=== PATIENT | female | born 1935 | race Caucasian/White ===

== ENCOUNTER → 2016-05-19 | Outpatient (CLI) | payer MEDICARE, OTHER ==
[~2016-05-19] MED LIST: ACTOS15 MG ORAL; ADVAIR 250/501 PUFFS INH; ASPIRIN-LOW81 MG ORAL; BENICAR20 MG ORAL; CLARITIN10 M1 ORAL; FLOVENT2 PUFF1 INH; GLUCOTROL5 MG ORAL; KLONOPIN0.5 MG ORAL; LINZESS145 MCG PO; MAXZIDE ORAL; MELATONIN3 MG ORAL; METFORMIN HCL500 M1 ORAL; NEXIUM40 MG ORAL; NORVASC5 MG ORAL; PREVACID30 MG ORAL; SIMVASTATIN20 MG ORAL; SINGULAIR10 MG ORAL; SYMBICORT2 PUFF1 INH; ZOLOFT50 MG ORAL
--- NOTE | 2016-05-19 14:58 | GI Progress Note ---
Assessment/Plan Problems: (1) GERD (gastroesophageal reflux disease) ICD Codes: K21.9 - Gastro-esophageal reflux disease without esophagitis SNOMED: 370769705 (2) Abdominal bloating ICD Codes: R14.0 - Abdominal distension (gaseous) SNOMED: 276193339 (3) Nausea ICD Codes: R11.0 - Nausea SNOMED: 756139722 (4) Abdominal pain ICD Codes: R10.9 - Unspecified abdominal pain SNOMED: 41690654, 575368242 (5) IBS (irritable bowel syndrome) ICD Codes: K58.9 - Irritable bowel syndrome without diarrhea SNOMED: 55289233, 00847139 Status: stable Status Narrative Seen with Dr. Del Castillo. Assessment/Plan cont meds - colace 100mg - Nexium 40mg - Baclofen 10mg - Vit D3 50,000U RTC prn Subjective Subjective GERD nausea Objective T 98.5 BP 146/98 P 66 WT 207, increased wt General Appearance: no apparent distress, alert Cardiovascular: normal rate Respiratory/Chest: no respiratory distress Abdominal Exam: normal bowel sounds, non tender, soft Extremities: normal range of motion Francoise Noe N.P. May 19, 2016 14:57
[2016-05-19 15:05] VITALS: BP 146/68
== END | disposition home or self-care (01) ==
LOC: PAN 14:11
DX: K21.9 Gastro-esophageal reflux disease without esophagitis (principal); R14.0 Abdominal distension (gaseous); R11.0 Nausea; R10.9 Unspecified abdominal pain; K58.9 Irritable bowel syndrome, unspecified
CPT/HCPCS: 99211

== ENCOUNTER → 2016-09-02 | Outpatient (CLI) | payer MEDICARE, OTHER ==
--- NOTE | 2016-09-02 15:41 | GI Progress Note ---
Assessment/Plan Problems: (1) IBS (irritable bowel syndrome) ICD Codes: K58.9 - Irritable bowel syndrome without diarrhea SNOMED: 80902013, 98172556 (2) Nausea ICD Codes: R11.0 - Nausea SNOMED: 102342235 (3) Abdominal pain ICD Codes: R10.9 - Unspecified abdominal pain SNOMED: 71766253, 476990539 (4) GERD (gastroesophageal reflux disease) ICD Codes: K21.9 - Gastro-esophageal reflux disease without esophagitis SNOMED: 485360647 (5) Abdominal bloating ICD Codes: R14.0 - Abdominal distension (gaseous) SNOMED: 890320752 (6) Constipation ICD Codes: K59.00 - Constipation, unspecified SNOMED: 41035707 (7) DM (diabetes mellitus screen) ICD Codes: Z13.1 - Encounter for screening for diabetes mellitus SNOMED: 678678254, 973945501 Status: stable Status Narrative Seen with Dr. Del Castillo. Assessment/Plan ordered lab draw; BMP, Vit D dc nexium, Rx Dexilant trial Trulance for constipation recommended IBgard for abdominal pain RTC x 3 months Pt request for lab results to be emailed to [email or web address] Subjective Subjective GERD >> nexium daily with relief constipation >> pt last BM x 2 days but small and loose loss of appetite abdominal gas nausea IBS Objective T 97.7 BP 129/55 P 71 95 RA Denies weight loss. General Appearance: no apparent distress, alert, overweight Cardiovascular: normal rate Respiratory/Chest: normal breath sounds, no respiratory distress Abdominal Exam: normal bowel sounds, non tender, soft Genitourinary/Rectal: normal rectal exam Extremities: normal range of motion, non-tender Francoise Noe NBetty Sep 02, 2016 15:41
[2016-09-02 16:54] LABS: ANION GAP 16 (5-15); CARBON DIOXIDE 24 mEQ/L (20-30); CHLORIDE 93 mEQ/L (98-107); CREATININE 0.8 mg/dL (0.5-0.9); HEMOLYSIS 4; POTASSIUM 4.6 mEQ/L (3.4-4.9); SODIUM 133 mEQ/L (135-145)
== END | disposition home or self-care (01) ==
LOC: PAN 14:06
DX: Z13.1 Encounter for screening for diabetes mellitus (principal); K58.9 Irritable bowel syndrome, unspecified; R11.0 Nausea; R10.9 Unspecified abdominal pain; K21.9 Gastro-esophageal reflux disease without esophagitis; R14.0 Abdominal distension (gaseous); K59.00 Constipation, unspecified
CPT/HCPCS: 36415; 80048; 82306; G0463; 99211

== ENCOUNTER 2017-04-28 14:58 | Outpatient (CLI) | payer MEDICARE, OTHER ==
[2017-04-28] MEDS ORDERED: COZAAR50 MG ORAL (15:19)
[2017-04-28 15:25] VITALS: BP 147/63
--- NOTE | 2017-04-28 16:05 | GI Progress Note ---
Assessment/Plan Problems: (1) Abdominal pain ICD Codes: R10.9 - Unspecified abdominal pain SNOMED: 66412286, 876091776 (2) Nausea ICD Codes: R11.0 - Nausea SNOMED: 362304724 (3) DM (diabetes mellitus screen) ICD Codes: Z13.1 - Encounter for screening for diabetes mellitus SNOMED: 759679897, 101927940 (4) GERD (gastroesophageal reflux disease) ICD Codes: K21.9 - Gastro-esophageal reflux disease without esophagitis SNOMED: 704056412 (5) IBS (irritable bowel syndrome) ICD Codes: K58.9 - Irritable bowel syndrome without diarrhea SNOMED: 89010772, 39582531 (6) Constipation ICD Codes: K59.00 - Constipation, unspecified SNOMED: 56586314 Status: stable Status Narrative Seen with Dr. Del Castillo. Assessment/Plan extensive discussion and education refill on medications >> nexium. Augmentin. Linzess. Lomotil. Zofran. RTC x 3 months recommend IBgard for abdominal pain RTC x 3 months Subjective Subjective abdominal pain constipation nausea has had cold symptoms x 1 month with sinus pain, PETTIT and cough Objective Last 24 Hour Vital Signs Date Time Temp Pulse Resp B/P (MAP) Pulse Ox O2 Delivery O2 Flow Rate FiO2 04/28/17 15:25 97.6 82 18 147/63 94 General Appearance: WD/WN, no apparent distress, alert, overweight Cardiovascular: normal rate Respiratory/Chest: normal breath sounds, no respiratory distress Abdominal Exam: normal bowel sounds, non tender, soft Extremities: normal range of motion, non-tender Francoise Noe NBetty Apr 28, 2017 16:05
== END 2017-04-28 15:30 | disposition home or self-care (01) ==
LOC: PAN 14:58
DX: K21.9 Gastro-esophageal reflux disease without esophagitis (principal); R11.0 Nausea; R10.9 Unspecified abdominal pain; K58.9 Irritable bowel syndrome, unspecified; K59.00 Constipation, unspecified; E11.9 Type 2 diabetes mellitus without complications
CPT/HCPCS: 99213

== ENCOUNTER 2017-08-18 14:20 | Outpatient (CLI) | payer MEDICARE, OTHER ==
[~2017-08-18 14:20] MED LIST changes: +COZAAR50 MG ORAL
[2017-08-18 14:30] VITALS: BP 137/62
--- NOTE | 2017-08-18 15:35 | GI Progress Note ---
Assessment/Plan Problems: (1) Constipation ICD Codes: K59.00 - Constipation, unspecified SNOMED: 66814711 (2) GERD (gastroesophageal reflux disease) ICD Codes: K21.9 - Gastro-esophageal reflux disease without esophagitis SNOMED: 895714357 (3) Abdominal pain ICD Codes: R10.9 - Unspecified abdominal pain SNOMED: 10334735, 962530719 (4) Nausea ICD Codes: R11.0 - Nausea SNOMED: 478237764 (5) Abdominal bloating ICD Codes: R14.0 - Abdominal distension (gaseous) SNOMED: 318394557 Status: stable Status Narrative Seen with Dr. Del Castillo. Assessment/Plan Rx for Baclofen, zofran, xifaxan Trial of Trulance EGD/colonoscopy next year (2018) RTC x 1 month Subjective Subjective GERD, taking dexilant constipation, taking linzess Objective T 97.7 BP 137/62 P 67 93 RA General Appearance: WD/WN, no apparent distress, alert Cardiovascular: normal rate Respiratory/Chest: normal breath sounds, no respiratory distress Abdominal Exam: normal bowel sounds, non tender, soft Extremities: normal range of motion, non-tender John Noe [employer] August 18, 2017 15:35
== END 2017-08-18 14:52 | disposition home or self-care (01) ==
LOC: PAN 14:20
DX: K59.00 Constipation, unspecified (principal); K21.9 Gastro-esophageal reflux disease without esophagitis; R10.9 Unspecified abdominal pain; R11.0 Nausea; R14.0 Abdominal distension (gaseous)
CPT/HCPCS: 99213